=== PATIENT | male | born 1990 | race Caucasian/White ===

== ENCOUNTER 2017-01-31 11:11 | Emergency (ER) | payer SELFPAY ==
--- NOTE | 2017-03-02 21:25 | ER ---
ADMIT: 01/31/2017 RM/LOC: ER [facility] MR#: [id number] [address] [address] [address] [place] [address] Emergency Room Report SEX: M AGE: 26 : 1990 DATE: 01/31/2017 CHIEF COMPLAINT: "Head throbbing". HISTORY OF PRESENT ILLNESS: This is a pleasant 26-year-old male presenting to the ER complaining of his head throbbing. The patient was seen at [facility] prior to arrival, complaining of head throbbing and some lightheadedness. The patient states over the past day, he has noted episodes of his head throbbing primarily in the posterior aspect. The patient does not complain of pain at this time and states he has not had any pain associated with this throbbing sensation. He does describe difficulty sleeping throughout the night and has concerns that he feels like he is paralyzed when he wakes in the middle of the night. He has otherwise felt healthy. Denies any fevers, chills, changes in vision, nausea, vomiting, or neck discomfort. He does feel when he is up and walking, he does have some dizziness and lightheadedness. Discussion with the patient's mother reveals concerns about potential diabetes and hypertension. Vital signs were stable at time of admission to the ER today, blood pressure 146/98. The patient states he has tried ibuprofen at home but that did not seem to relieve any of his symptoms. No family history of any major neurological problems. No personal history of migraines, hypertension, or diabetes. PAST MEDICAL HISTORY: None PAST SURGICAL HISTORY: He did have a history of bilateral tympanostomy tubes placed as a child. COURSE IN THE EMERGENCY ROOM: The patient was seen and examined. Overall, physical exam was unremarkable. Neuro exam was within normal limits. Orthostatic blood pressures were obtained, lying was 142/68, sitting 137/79, and standing 136/90. The patient was counseled on the need for followup with concerns of his diabetes. He does have significant risk factors as he is overweight with a family history and admits to some increased urination. He ADMIT: 01/31/2017 RM/LOC: ER [facility] MR#: [id number] [address] [address] [place] [address] Emergency Room Report SEX: M AGE: 26 : 1990 was encouraged to establish care with a primary care provider for which he said he has already had some providers in mind. He was offered an injection of Benadryl, for which he refuses. He was instructed to return home, increase fluids as tolerated, to use Tylenol or Motrin [id number] as directed as needed for any pain. He was instructed to return as needed with any concerning symptoms or worsening of symptoms. He was also told he could try Benadryl 25 mg by mouth, [id number], to see if it would relieve some of the throbbing sensation he is experiencing. Questions were sought and answered to the best of our ability. The patient and his mother both agreed to the plan moving forward and stated they would follow up in the coming days with the primary care provider. He was discharged from the ER in stable condition. OBIE Henry / Adithya Conley MD / yesil JOB #: [id number] CC: Adithya Conley MD, Attending Physician Tiago Arana MD, Family Physician
== END 2017-01-31 12:05 | disposition home or self-care (01) ==
LOC: ER 11:11
DX: R42 Dizziness and giddiness (principal); Z88.0 Allergy status to penicillin